=== PATIENT | female | born 1985 | race African-American/Black ===

== ENCOUNTER 2016-10-30 20:03 | Inpatient (IN) | payer MEDICAID, OTHER ==
[~2016-10-30] VITALS: Ht 149.9 cm; Wt 100.3 kg
[2016-10-30 21:04] LABS: Urine Color Brown (Yellow); Urine Glucose Normal (Normal); Urine Mucus FEW (None Seen); Urine Nitrite Negative (Negative); Urine RBC 4007 /hpf (0 - 4); Urine Squamous Epithelial Cell MOD /hpf (<5)
[2016-10-30 21:16] LABS: Albumin 3.1 g/dL (3.4-5.0); BUN/Creatinine Ratio 14.3; Calcium 8.6 mg/dL (8.5-10.1); Magnesium 2.1 mg/dL (1.6-2.6); Potassium 3.2 mmol/L (3.5-5.1)
[2016-10-30 21:18] LABS: Bilirubin, Total 5.1 mg/dL (0.2-1.0); Total Protein 7.8 g/dL (6.4-8.2)
[2016-10-30 21:25] LABS: Basophils # (auto) 0.1 uL; Basophils % (auto) 1.1 % (0.0-2.0); CONDITION Y; DEFINITIVE SEE PRINTOUT; Eosinophils # (auto) 0.1 uL; Eosinophils % (auto) 0.8 % (0.0-7.0); Hematocrit 36.1 % (36.0-46.0); Hemoglobin 11.6 g/dL (12.2-16.2); Lymphocytes # (auto) 3.1 uL; Lymphocytes % (auto) 34.4 % (10.0-50.0); Mean Corpuscular Hemoglobin 22.5 pg (28.0-32.0); Mean Corpuscular Hgb Conc. 32.3 g/dL (32.0-36.0); Mean Corpuscular Volume 69.6 fL (80.0-100.0); Mean Platelet Volume 10.1 fL (7.4-10.4); Monocytes % (auto) 10.5 % (0.0-12.0); Neutrophils # (auto) 4.8 uL; Neutrophils % (auto) 53.2 % (37.0-80.0); Platelet Count (auto) 390 10^3/uL (140-450); SUSPECT SEE PRINTOUT; White Blood Cell 9.1 10^3/uL (4.4-10.8)
[2016-10-30 21:41] LABS: Red Cell Distribution Width 20.6 % (11.6-16.0)
[2016-10-30 21:54] LABS: Urine Bilirubin 1+ (Negative); Urine Blood 3+ /uL (Negative); Urine Ketone 1+ (Negative)
[2016-10-30 22:11] LABS: Anisocytosis Moderate; Burr Cells FEW; Ovalocytes FEW; Platelet Estimate Adequate; Tear Drop Cells FEW
[2016-10-30 22:12] LABS: Giant Platelets Few; Hypochromia Moderate
[2016-10-31] MEDS ORDERED: IOHEXOL 300 MG/ML 100ML BOTTLE IJ ONE (01:46)
[2016-10-31] MEDS ORDERED: ACETAMINOPHEN 325 MG TAB PO PRN (05:30)
[2016-10-31] MEDS ORDERED: POTASSIUM CHL 20 Meq TABLET PO ONE (05:30)
[2016-10-31] MEDS ORDERED: ONDANSETRON HCL 4 MG/2 ML VIAL IV PRN (05:30)
[2016-10-31] MEDS ORDERED: HYDROcodone-ACET 5/325MG TAB PO PRN (05:30)
[2016-10-31 06:46] LABS: INR 1.08 (0.9-1.15); Partial Thromboplastin Time 27.2 sec (22.64-33.71); Prothrombin Time 11.8 sec (9.37-12.3)
[2016-10-31] MEDS ORDERED: PANTOPRAZOLE SODIUM 40 MG/10 ML VIAL IV SCH (10:00)
[2016-10-31] MEDS: cefTRIAXone 1GM/50ML D5W 50 ML IV SCH (12:00)
[2016-10-31] MEDS: predniSONE 20 MG TAB PO SCH (14:21)
[2016-10-31 15:05] VITALS: BP 100/48
[2016-10-31 16:48] VITALS: BP 123/70
[2016-10-31 20:00] VITALS: BP 117/49
[2016-10-31 21:37] VITALS: BP 117/49
[2016-10-31] MEDS: PANTOPRAZOLE 40 MG TAB PO SCH (22:26)
[2016-11-01] VITALS (7 sets, daily range): BP systolic 101–126; BP diastolic 40–68
[2016-11-01 06:30] LABS: Basophils # (auto) 0 uL; Basophils % (auto) 0.4 % (0.0-2.0); CONDITION Y; DEFINITIVE SEE PRINTOUT; Eosinophils # (auto) 0 uL; Hemoglobin 11.1 g/dL (12.2-16.2); Lymphocytes # (auto) 2.3 uL; Lymphocytes % (auto) 21.1 % (10.0-50.0); Mean Corpuscular Hemoglobin 22.7 pg (28.0-32.0); Mean Corpuscular Hgb Conc. 32.5 g/dL (32.0-36.0); Mean Corpuscular Volume 69.9 fL (80.0-100.0); Mean Platelet Volume 11.1 fL (7.4-10.4); Monocytes # (auto) 0.4 uL; Neutrophils % (auto) 74.5 % (37.0-80.0); Platelet Count (auto) 359 10^3/uL (140-450); SUSPECT SEE PRINTOUT; White Blood Cell 10.7 10^3/uL (4.4-10.8)
[2016-11-01 06:33] LABS: Red Cell Distribution Width 22.2 % (11.6-16.0)
[2016-11-01 06:46] LABS: Albumin 2.9 g/dL (3.4-5.0); BUN/Creatinine Ratio 15.9; Bilirubin, Total 4.6 mg/dL (0.2-1.0); Calcium 9.3 mg/dL (8.5-10.1); Potassium 3.8 mmol/L (3.5-5.1); Total Protein 7.1 g/dL (6.4-8.2)
[2016-11-01 09:21] LABS: Anisocytosis Moderate; Burr Cells FEW; Giant Platelets Few; Hypochromia Moderate; Ovalocytes FEW; Platelet Estimate Adequate; Tear Drop Cells FEW
[2016-11-01] MEDS: cefTRIAXone 1GM/50ML D5W 50 ML IV SCH (09:45)
[2016-11-01] MEDS: predniSONE 20 MG TAB PO SCH (09:45)
[2016-11-01] MEDS: PANTOPRAZOLE 40 MG TAB PO SCH ×2 (09:46→23:01)
[2016-11-02 04:50] VITALS: BP 112/58
[2016-11-02 08:35] LABS: Basophils # (auto) 0.1 uL; Basophils % (auto) 0.5 % (0.0-2.0); CONDITION Y; DEFINITIVE SEE PRINTOUT; Eosinophils # (auto) 0 uL; Hematocrit 33.3 % (36.0-46.0); Hemoglobin 11.1 g/dL (12.2-16.2); Lymphocytes # (auto) 3.3 uL; Lymphocytes % (auto) 21.3 % (10.0-50.0); Mean Corpuscular Hemoglobin 22.7 pg (28.0-32.0); Mean Corpuscular Hgb Conc. 33.2 g/dL (32.0-36.0); Mean Corpuscular Volume 68.3 fL (80.0-100.0); Mean Platelet Volume 9.6 fL (7.4-10.4); Monocytes # (auto) 1.3 uL; Monocytes % (auto) 8.4 % (0.0-12.0); Neutrophils % (auto) 69.8 % (37.0-80.0); Platelet Count (auto) 427 10^3/uL (140-450); White Blood Cell 15.7 10^3/uL (4.4-10.8)
[2016-11-02 08:38] LABS: Red Cell Distribution Width 21.6 % (11.6-16.0)
[2016-11-02] MEDS: PANTOPRAZOLE 40 MG TAB PO SCH (08:53)
[2016-11-02] MEDS: cefTRIAXone 1GM/50ML D5W 50 ML IV SCH (08:53)
[2016-11-02] MEDS: predniSONE 20 MG TAB PO SCH (08:53)
[2016-11-02 09:00] VITALS: BP 93/47
[2016-11-02 09:16] LABS: Albumin 2.9 g/dL (3.4-5.0); BUN/Creatinine Ratio 21.3; Bilirubin, Total 2.7 mg/dL (0.2-1.0); Calcium 8.6 mg/dL (8.5-10.1); Potassium 3.7 mmol/L (3.5-5.1); Total Protein 7.3 g/dL (6.4-8.2)
[2016-11-02 09:35] LABS: Anisocytosis Moderate; Giant Platelets Few; Hypochromia Moderate; Microcytosis Moderate; Ovalocytes FEW; Platelet Estimate Adequate; Tear Drop Cells FEW
[2016-11-02] MEDS ORDERED: PRE5T PO (12:43)
[2016-11-02] MEDS ORDERED: URSO300C4 PO (12:43)
[2016-11-02] MEDS ORDERED: HYDR-4663 PO (12:43)
[2016-11-02] MEDS ORDERED: AZAT50TA18 PO (12:43)
[2016-11-02 13:00] VITALS: BP 101/53
[2016-11-02 14:15] VITALS: BP 93/47
== END 2016-11-02 15:20 | disposition home or self-care (01) ==
LOC: ER 20:08 → TELE 20:09 → EAST 10-31 08:01
PROVIDERS: ADMIT Nurse Practitioner; ATTEND Internal Medicine
DX: K75.4 Autoimmune hepatitis (principal); N39.0 Urinary tract infection, site not specified; B17.9 Acute viral hepatitis, unspecified; E11.9 Type 2 diabetes mellitus without complications; D25.9 Leiomyoma of uterus, unspecified; E66.01 Morbid (severe) obesity due to excess calories; E87.6 Hypokalemia; Z68.41 Body mass index [BMI] 40.0-44.9, adult; Z91.14 Patient's other noncompliance with medication regimen
CPT/HCPCS: 36415; 74177; 80048; 80053; 80061; 80074; 80076; 81001; 82140; 83036; 83690; 83735; 84702; 85025; 85610; 85730; 87086; C9113; J0696

== ENCOUNTER 2018-10-27 07:37 | Emergency (ER) | payer MEDICAID, OTHER ==
[~2018-10-27] VITALS: Ht 149.9 cm; Wt 80.3 kg
[~2018-10-27 07:37] MED LIST: AZAT50TA6 PO; HYDR-4683 PO; PRE5T PO; URSO300C4 PO
[2018-10-27 08:11] LABS: Eosinophils # (auto) 0.1 uL; Eosinophils % (auto) 0.9 % (0.0-7.0); Hemoglobin 11.9 g/dL (12.2-16.2); Monocytes # (auto) 1.1 uL; Red Cell Distribution Width 16.9 % (11.8-14.3)
[2018-10-27 08:12] LABS: Urine Bacteria MOD /hpf (None Seen); Urine Blood Negative /uL (Negative); Urine Mucus FEW (None Seen); Urine Specific Gravity 1.019 (1.001-1.035); Urine Sperm PRESENT /hpf (None Seen); Urine WBC 12 /hpf (0 - 5)
[2018-10-27 08:12] LABS: Basophils # (auto) 0.1 uL; Basophils % (auto) 1.4 % (0.0-2.0); Hematocrit 35.9 % (36.0-46.0); Lymphocytes # (auto) 3.7 uL; Lymphocytes % (auto) 40.3 % (10.0-50.0); Mean Corpuscular Hemoglobin 26.3 pg (28.0-32.0); Mean Corpuscular Hgb Conc. 33.2 g/dL (32.0-36.0); Monocytes % (auto) 11.7 % (0.0-12.0); Neutrophils # (auto) 4.2 uL; Neutrophils % (auto) 45.7 % (37.0-80.0); Nucleated Red Blood Cells % 0.1 %; Platelet Count (auto) 287 10^3/uL (140-450); Red Blood Cells 4.54 10^6/uL (4.0-5.20); White Blood Cell 9.3 10^3/uL (4.4-10.8)
[2018-10-27 08:33] LABS: Calcium 8.7 mg/dL (8.5-10.1); Potassium 3.6 mmol/L (3.5-5.1)
[2018-10-27 08:39] LABS: Albumin 3.4 g/dL (3.4-5.0); BUN/Creatinine Ratio 15.3; Bilirubin, Total 1.6 mg/dL (0.2-1.0); Total Protein 8.1 g/dL (6.4-8.2)
[2018-10-27 09:48] VITALS: BP 98/61
[2018-10-27] MEDS: MORPHINE SULF INJ 2 MG/ML SYRINGE 1ML IV ONE (10:25)
[2018-10-27] MEDS: ONDANSETRON HCL 4 MG/2 ML VIAL IV ONE (10:25)
== END 2018-10-27 10:56 | disposition home or self-care (01) ==
LOC: ER 07:37
DX: B19.20 Unspecified viral hepatitis C without hepatic coma (principal); K74.60 Unspecified cirrhosis of liver; N39.0 Urinary tract infection, site not specified; E11.65 Type 2 diabetes mellitus with hyperglycemia; R74.8 Abnormal levels of other serum enzymes; Z79.899 Other long term (current) drug therapy
CPT/HCPCS: 36415; 80053; 81001; 81025; 85025; 96374; 96375; 99283; J2270; J2405

== ENCOUNTER 2019-02-10 19:28 | Emergency (ER) | payer OTHER ==
[~2019-02-10] VITALS: Ht 149.9 cm; Wt 94.8 kg
[~2019-02-10 19:28] MED LIST changes: -HYDR-4683 PO; +HYDR-4833 PO
[2019-02-10] MEDS ORDERED: PROMETHAZINE W/CODEINE 5 ML ORAL SYRUP PO ONE (21:00)
[2019-02-10] MEDS ORDERED: DexAMETHasone SOD PHOS 10MG/1ML VIAL INJ IM ONE (21:00)
[2019-02-10 21:42] VITALS: BP 126/79
== END 2019-02-10 21:52 | disposition home or self-care (01) ==
LOC: ER 19:31
DX: J06.9 Acute upper respiratory infection, unspecified (principal); E11.9 Type 2 diabetes mellitus without complications
CPT/HCPCS: 96372; 99283; J1100